=== PATIENT | male | born 1980 | race Caucasian/White ===

== ENCOUNTER 2021-04-01 11:49 | Emergency (ER) | payer OTHER, SELFPAY ==
--- NOTE | ~2021-04-01 | XR_ITS ---
EXAMINATION: XR finger 5th LT min 2V INDICATION: Left fifth finger pain TECHNIQUE: Four views of the left fifth finger are obtained. COMPARISON: None available FINDINGS: There is no fracture, dislocation, or subluxation. The bones and joint spaces are normal. N o radiopaque foreign body is identified. There is distal soft tissue swelling of the finger. IMPRESSION: 1. No acute osseous abnormality. Reviewed, dictated and finalized at location A. [employer]
--- NOTE | 2021-04-01 12:07 | ED.SKABFB ---
HPI - Skin/Abscess/Foreign Bdy General Chief complaint: Extremity Injury, Upper Stated complaint: Left hand Laceration Time Seen by Provider: 04/01/21 11:54 Source: patient Mode of arrival: ambulatory Limitations: no limitations History of Present Illness HPI narrative: This is a 40 year old male that presents to the ER for left 5th finger injury sustained just prior to arrival. Reports he was helping his brother demo a house. Reports they were throwing a mirror away and he sustained a laceration to the left 5th finger. Reports bleeding and pain to the area. Denies decreased ROM or numbness. Related Data Allergies Allergy/AdvReac Type Severity Reaction Status Date / Time No Known Allergies Allergy Mild Verified 07/13/09 19:31 Review of Systems Review of Systems: CONSTITUTIONAL: Denies fever SKIN: Reports laceration All systems reviewed & are unremarkable except as noted in HPI and below PMFSH Past Medical History Medical History (Updated 04/01/21 @ 13:44 by Jessie Solorio PA-C) No active medical problems Social History Social History (Updated 04/01/21 @ 12:09 by Jessie Solorio PA-C) Substance use: never Exam Narrative: GENERAL: Well-appearing, well-nourished, and in no acute distress. HEAD: Normocephalic, atraumatic. EYES: EOMI. EXTREMITIES: Normal range of motion. No edema. 2cm linear laceration into subcutaneous tissue to the left 5th finger distal phalanx palmar surface SKIN: Warm, dry, no rash. NEURO: No focal deficits. Alert and oriented x3. PSYCH: Normal mood and affect Course Vital Signs Vital signs: Vital Signs Temperature 98.2 F 04/01/21 12:35 Pulse Rate 67 04/01/21 12:35 Respiratory Rate 18 04/01/21 12:35 Blood Pressure 147/85 H 04/01/21 12:35 Pulse Oximetry 100 04/01/21 12:35 Temperature 98.2 F 04/01/21 12:35 Pulse Rate 67 04/01/21 12:35 Respiratory Rate 18 04/01/21 12:35 Blood Pressure 147/85 H 04/01/21 12:35 Pulse Oximetry 100 04/01/21 12:35 Procedures Laceration Laceration 1: Date: 04/01/21 Time: 13:00 Site: hand Side (If applicable): left Size (cm): 2 Description: linear Depth: simple, single layer Local Anesthetic: lidocaine 1% Amount of anesthesia used (mL): 3 Pre-repair: irrigated ====== Skin Level ====== Skin layer closed with: nylon Size (cm): 4-0 Number of sutures: 4 Technique: simple, interrupted ====== Subcutaneous Layer ====== ====== Muscle Layer ====== ====== Tendon Layer ====== MDM - Skin/Abscess/Foreign Bdy MDM Narrative Medical decision making narrative: Patient presents to the emergency department for laceration of the left fifth finger sustained just prior to arrival. Patient's wound was irrigated and closed with sutures. Patient was updated on tetanus. Left fifth finger x-ray without acute findings. Patient was educated on wound care. He is to follow-up with primary care doctor. He was given warnings to return to the ER Imaging Data Radiologist's impression: ITS Impressions Finger X-Ray 04/01/21 12:50 IMPRESSION: 1. No acute osseous abnormality. Critical Care Time Critical Care Time Critical Care Time: No Discharge Plan Discharge Clinical Impression: Laceration Patient Disposition: Home, Self-Care Condition: Stable Instructions: Care For Your Stitches (ED), Laceration (ED) Additional Instructions: Return to the emergency department if you experience fever, redness or swelling of your wound, abnormal drainage from your wound, or any other symptoms that are concerning to you. Apply antibiotic ointment daily. Do not soak the wound. Clean with mild soap and water daily Follow-up with your primary care doctor for suture removal in 10-14 days. Follow-up/Referrals: PHYSICIAN NOT ON STAFF,NONSTAFF [Primary Care Provider] - 3 Days
[2021-04-01 12:35] VITALS: BP 147/85; PULSE 67; RESP 18; TEMP 36.8; O2SAT 100
[2021-04-01] MEDS: LIDOCAINE HCL 1% LOCAL INJ 20 ML VIAL INFILTRATE (12:47)
[2021-04-01] MEDS: TETANUS,DIPHTHERIA,AC PERTUSSIS ADULT (0.5 ML) BOOSTRIX IM (12:57)
== END 2021-04-01 13:47 | disposition home or self-care (01) ==
PROVIDERS: Emergency Provider Emergency Medicine
DX: S61.217A Laceration without foreign body of left little finger without damage to nail, initial encounter (principal); Z23 Encounter for immunization; W25.XXXA Contact with sharp glass, initial encounter
CPT/HCPCS: 12001; 73140; 90471; 90715; 99283

== ENCOUNTER 2022-03-11 07:15 | Emergency (ER) | payer OTHER, SELFPAY ==
[2022-03-11 07:16] VITALS: BP 152/98; PULSE 82; RESP 18; TEMP 36.7; O2SAT 99
--- NOTE | 2022-03-11 09:02 | ED_ITS ---
HPI - Wound/Laceration General Chief Complaint: Wound/Laceration Stated Complaint: abscess Time Seen by Provider: 03/11/22 07:46 Related Data Allergies Allergy/AdvReac Type Severity Reaction Status Date / Time No Known Allergies Allergy Mild Verified 03/11/22 07:43 [facility] Past Medical History Medical History (Updated 03/11/22 @ 09:03 by Juan Pablo Dorsey MD) No active medical problems Social History Social History (Updated 04/01/21 @ 12:09 by Jessie Solorio PA-C) Substance use: never Course Vital Signs Vital signs: Vital Signs Temperature 98.1 F 03/11/22 07:16 Pulse Rate 82 03/11/22 07:16 Respiratory Rate 18 03/11/22 07:16 Blood Pressure 152/98 H 03/11/22 07:16 Pulse Oximetry 99 03/11/22 07:16 Oxygen Delivery Room Air 03/11/22 07:16 Temperature 98.1 F 03/11/22 07:16 Pulse Rate 82 03/11/22 07:16 Respiratory Rate 18 03/11/22 07:16 Blood Pressure 152/98 H 03/11/22 07:16 Pulse Oximetry 99 03/11/22 07:16 Oxygen Delivery Room Air 03/11/22 07:16 Discharge Plan Discharge Clinical Impression: Pilonidal abscess Patient Disposition: Home, Self-Care Condition: Stable Instructions: Antibiotic Form, Pilonidal Cyst (ED) Additional Instructions: You have a pilonidal cyst of your gluteal cleft that became infected and swollen. Pus and cystic material was removed. Perform sit salt water baths to keep the area soft and try to push out any additional fluid that may reaccumulate. Recommend you follow-up with a general surgeon who may be able to surgically remove the cyst as these sometimes recur. An attempt was made to incise your abscess and it was unsuccessful however due to it already starting to drain we are able to remove all of the fluid. It is felt that your cyst is located. Prescriptions: New sulfamethoxazole-trimethoprim [Bactrim DS] 800-160 mg tablet 1 tablet PO Q12H Qty: 14 0RF hydrocodone-acetaminophen 5-325 mg tablet 1 tablet PO Q6H PRN (Reason: pain) Qty: 12 0RF Follow-up/Referrals: Bobby,Ariel A., MD [Physician] - 1 Week PHYSICIAN NOT ON STAFF,NONSTAFF [Primary Care Provider] -
[2022-03-11 09:32] VITALS: BP 128/51; PULSE 81; RESP 14; O2SAT 98
== END 2022-03-11 09:46 | disposition home or self-care (01) ==
PROVIDERS: Emergency Provider Emergency Medicine
DX: L05.01 Pilonidal cyst with abscess (principal)
CPT/HCPCS: 10080; 99283